=== PATIENT | female | born 1985 | race Caucasian/White ===

== ENCOUNTER 2016-11-18 17:41 | Emergency (ER) | payer OTHER ==
[~2016-11-18] VITALS: Ht 149.9 cm; Wt 71.4 kg
[~2016-11-18 17:41] MED LIST: B-COTAB18 PO; LYSI100010 PO; NAPR1TAB9 PO
[2016-11-18 17:44] VITALS: TEMP 36.3; Ht 149.9 cm; Wt 71.4 kg
[2016-11-18] MEDS ORDERED: ALBUT/IPRATROP 3MG/0.5MG NEB 3 ML VIAL INH STA (17:54)
--- NOTE | 2016-11-18 18:00 | EMERGENCY ROOM VISIT NOTE ---
History Report prepared by Khloe: Cecile Coronel Under the Supervision of: Dr. Saji Viveros M.D. First contact with patient: 17:48 Chief Complaint: COUGH Stated Complaint: COUGH,HARD TIME BREATHING,PAIN IN RIBS History of Present Illness The patient is a 31 year old female who presents to the Emergency Room with complaints of a persistent cough for the past month. She currently rates her discomfort as a 6/10 in severity. The patient states that she has been persistently coughing for the past month, and additionally notes shortness of breath and pain in her ribs. She states that nine days ago she was started on Doxycycline. The patient states that her symptoms have persisted. She states that she went to [facility] ([place]) today and was sent to the emergency department for further evaluation and treatment. The patient denies any fever or chills. She reports a history of asthma and states that she has an albuterol inhaler that she uses. The patient denies being a smoker. She denies any history of blood clots. The patient denies being around anyone who was recently sick or with pertussis. She believes that she is up to date on her immunizations. Source of History: patient Onset: past month Position: other (global) Symptom Intensity: 6/10 Quality: other (cough) Timing: other (persistent) Associated Symptoms: + SOB, No fevers, No chills Note: Associated Symptoms: pain in ribs Review of Systems All systems have been listed, reviewed, and are negative other than those previously mentioned. Please see Additional Medical History Sheet. Past Medical & Surgical Medical Problems: (1) Asthma Family History Diabetes mellitus Social History Smoking Status: Never Smoker Smokeless Tobacco Use: No Alcohol Use: none Marital Status: single Housing Status: lives with roommate Occupation Status: employed Current/Historical Medications Scheduled Doxycycline (Monohydrate) (Doxycycline), 100 MG PO BID Guaifenesin/Codeine (Robitussin-Ac Syrup), 5 ML PO DAILY Prednisone (Prednisone), 0 PO UD Prednisone (Prednisone), 20 MG PO BID Scheduled PRN Albuterol Hfa (Ventolin Hfa), 2-4 PUFFS INH Q4 PRN for Shortness of Breath Allergies Coded Allergies: Ibuprofen (Verified Allergy, Unknown, HIVES, 11/18/16) Metronidazole (Verified Allergy, Unknown, SEVERE HEADACHE, 11/18/16) Sulfamethoxazole w/Trimethoprim (Verified Allergy, Unknown, FACIAL SWELLING, 11/18/16) Physical Exam Vital Signs Date Time Temp Pulse Resp B/P (MAP) Pulse Ox O2 Delivery O2 Flow Rate FiO2 11/18/16 19:33 75 16 109/63 97 Room Air 11/18/16 17:54 96 11/18/16 17:44 36.3 70 18 96 Room Air Physical Exam GENERAL: Patient awake, alert, oriented x 3. Patient follows commands. Patient does not appear toxic. Patient is adequately hydrated and well- nourished. SKIN: No erythema, pallor, cyanosis or rash HEENT: Normal head, pupils equal, reactive to light and accommodation. Ears normal. Oral cavity and posterior pharynx appear normal. Neck: Without adenopathy, no neck vein distention. LUNGS: Frequent cough, no wheezes, rales, or rhonchi. HEART: No murmurs. No gallops. No rubs ABDOMEN: Soft, nontender. EXTREMITIES: No signs of trauma. No pedal or pretibial edema. No calf or thigh tenderness. NEUROLOGIC: Cranial nerves II-XII within normal limits. No gross motor sensory function deficits. Medical Decision & Procedures ER Provider Diagnostic Interpretation: X ray results are stated below per my interpretation and the radiologist's interpretation. CHEST 2 VIEWS ROUTINE CLINICAL HISTORY: Persistent cough. Rib pain. Shortness of breath. COMPARISON STUDY: 01/26/2015 FINDINGS: The cardiac and mediastinal contours are normal. There is no evidence of focal pulmonary consolidation. There is no evidence of failure. No pleural effusions are visualized.[ IMPRESSION: No active disease in the chest. Electronically signed by: Gianfranco Arnold M.D. 11/18/2016 6:34 PM Dictated Date/Time: 11/18/2016 6:34 PM Laboratory Results 11/18/16 18:50 Red Blood Count 4.67, Mean Corpuscular Volume 89.3, Mean Corpuscular Hemoglobin 29.1, Mean Corpuscular Hemoglobin Concent 32.6, Mean Platelet Volume 10.6, Neutrophils (%) (Auto) 66.0, Lymphocytes (%) (Auto) 25.3, Monocytes (%) (Auto) 6.8, Eosinophils (%) (Auto) 1.3, Basophils (%) (Auto) 0.1, Neutrophils # (Auto) 7.11, Lymphocytes # (Auto) 2.73, Monocytes # (Auto) 0.73, Eosinophils # (Auto) 0.14, Basophils # (Auto) 0.01 Test 11/18/16 18:00 11/18/16 18:50 White Blood Count 10.77 K/uL (4.8-10.8) Red Blood Count 4.67 M/uL (4.2-5.4) Hemoglobin 13.6 g/dL (12.0-16.0) Hematocrit 41.7 % (37-47) Mean Corpuscular Volume 89.3 fL (80-100) Mean Corpuscular Hemoglobin 29.1 pg (25-34) Mean Corpuscular Hemoglobin Concent 32.6 g/dl (32-36) Platelet Count 150 K/uL (130-400) Mean Platelet Volume 10.6 fL (7.4-10.4) Neutrophils (%) (Auto) 66.0 % Lymphocytes (%) (Auto) 25.3 % Monocytes (%) (Auto) 6.8 % Eosinophils (%) (Auto) 1.3 % Basophils (%) (Auto) 0.1 % Neutrophils # (Auto) 7.11 K/uL (1.4-6.5) Lymphocytes # (Auto) 2.73 K/uL (1.2-3.4) Monocytes # (Auto) 0.73 K/uL (0.11-0.59) Eosinophils # (Auto) 0.14 K/uL (0-0.5) Basophils # (Auto) 0.01 K/uL (0-0.2) RDW Standard Deviation 44.4 fL (36.4-46.3) RDW Coefficient of Variation 13.6 % (11.5-14.5) Immature Granulocyte % (Auto) 0.5 % Immature Granulocyte # (Auto) 0.05 K/uL (0.00-0.02) Laboratory results as stated above per my review. Medications Administered Medications (Trade) Dose Ordered Sig/Daryl Route Start Time Stop Time Status Last Admin Dose Admin Albuterol/ Ipratropium (Duoneb) 3 ml NOW STAT INH 11/18/16 17:54 11/18/16 17:57 DC 11/18/16 18:15 3 ML Prednisone (PredniSONE TAB) 30 mg NOW STAT PO 11/18/16 19:44 11/18/16 19:46 DC 11/18/16 20:00 30 MG ED Course 1748: Past medical records reviewed. The patient was evaluated in room C11B. A complete history and physical examination was performed. 1753: Ordered Duoneb 3 ml INH. 1939: I reevaluated the patient and she is coughing much less and feeling much better. I discussed the exam findings with her and I discussed the treatment plan. She verbalized complete understanding and agreement. She is ready to go home. 1943: Ordered Prednisone 30 mg PO. Medical Decision Nurses notes reviewed. Medical history sheet reviewed. Differential diagnosis includes but is not limited to: pneumonia, bronchitis, whooping cough. Blood work and imaging were obtained. Please see above. The patient is no evidence of pneumonia. She was given a breathing treatment here which helped to suppress the cough. At time of discharge the patient was feeling better. The patient will be placed back on prednisone. She was instructed to complete the course of doxycycline. She is to use her inhaler more frequently. She is also to follow-up with her family physician within the next 7 days. Medication Reconciliation: I attest that I have personally reviewed the patient' s current medication list. Blood pressure Screening: Patient was found to have normal blood pressure on screening and does not require follow up. Impression Primary Impression: Acute bronchitis Scribe Attestation The scribe's documentation has been prepared under my direction and personally reviewed by me in its entirety. I confirm that the note above accurately reflects all work, treatment, procedures, and medical decision making performed by me. Departure Information Dispostion Home / Self-Care Prescriptions Prednisone (Prednisone) 20 Mg Tab 20 MG PO BID for 4 Days, #8 TAB Prov: Saji Viveros M.D. 11/18/16 Referrals Gloria Feliz DO (PCP) Forms HOME CARE DOCUMENTATION FORM, IMPORTANT VISIT INFORMATION Patient Instructions Bronchitis Acute, My [facility] Additional Instructions 20 mg of prednisone twice a day for the next 4 days. You may use your inhaler 2 puffs as often as every 2 hours. Follow-up with your family physician within the next 7 days. Complete the course of doxycycline.
--- NOTE | 2016-11-18 18:36 | DIAGNOSTIC IMAGING REPORT ---
CHEST 2 VIEWS ROUTINE CLINICAL HISTORY: Persistent cough. Rib pain. Shortness of breath. COMPARISON STUDY: 01/26/2015 FINDINGS: The cardiac and mediastinal contours are normal. There is no evidence of focal pulmonary consolidation. There is no evidence of failure. No pleural effusions are visualized.[ IMPRESSION: No active disease in the chest. Electronically signed by: Gianfranco Arnold M.D. 11/18/2016 6:34 PM Dictated Date/Time: 11/18/2016 6:34 PM
[2016-11-18] MEDS ORDERED: VNTHFA/IN INH (18:45)
[2016-11-18] MEDS ORDERED: DOXY-300 PO (18:45)
[2016-11-18] MEDS ORDERED: PRED10TA PO (18:45)
[2016-11-18] MEDS ORDERED: GUAISYP4 PO (18:45)
[2016-11-18 18:59] LABS: BASO % 0.1 %; BASO ABS # 0.01 K/uL (0-0.2); COMPLETE YES; EOS % 1.3 %; HEMATOCRIT 41.7 % (37-47); IG% 0.5 %; LYMPH % 25.3 %; LYMPH ABS # 2.73 K/uL (1.2-3.4); MEAN CELL VOLUME 89.3 fL (80-100); MEAN CORPUSCULAR HEMOGLOBIN 29.1 pg (25-34); MEAN CORPUSCULAR HGB CONC 32.6 g/dl (32-36); MEAN PLATELET VOLUME 10.6 fL (7.4-10.4); MONO % 6.8 %; PLATELET COUNT 150 K/uL (130-400); RED BLOOD COUNT 4.67 M/uL (4.2-5.4); WHITE BLOOD COUNT 10.77 K/uL (4.8-10.8)
[2016-11-18 19:33] VITALS: BP 109/63; PULSE 75; O2SAT 97
[2016-11-18] MEDS ORDERED: PRED20TA PO (19:46)
[2016-11-20 23:35] LABS: BORDETELLA PERTUSSIS SOURCE Swab
== END 2016-11-18 20:03 | disposition home or self-care (01) ==
LOC: C.EDB 17:42 → C.EDC 20:03
DX: J20.9 Acute bronchitis, unspecified (principal); J45.909 Unspecified asthma, uncomplicated; Z83.3 Family history of diabetes mellitus; Z79.899 Other long term (current) drug therapy